=== PATIENT | male | born 1995 | race Two or more races ===

== ENCOUNTER 2017-07-04 23:51 | Emergency (ER) | payer SELFPAY ==
[~2017-07-04] VITALS: Ht 177.8 cm; Wt 86.2 kg
--- NOTE | 2017-07-05 | NUR ---
TO BED 4 A 21 YO MALE PATIENT BIBRA 69 FROM HOME FOR EATING "BROWNIES". FIELD BS 116. NAD NOTED. VSS. GOWNED. COMFORT MEASURES RENDERED. ONGOING VS MONTIORING.
--- NOTE | 2017-07-05 00:40 | NUR ---
IV removed. Catheter intact and site benign. Pressure and 4x4 applied to site. No bleeding noted.Patient discharged to home in stable condition. Written and verbal after care instructions given. Patient verbalizes understanding of instruction. Patient is ambulatory with steady gait, accompanied by friends. Instructed not to drive. No further complaints.
[2017-07-05 00:51] VITALS: BP 111/87
== END 2017-07-05 00:51 | disposition home or self-care (01) ==
LOC: ER 23:53
DX: F12.10 Cannabis abuse, uncomplicated (principal)
CPT/HCPCS: 82962; 99283; A4606; Z7610